=== PATIENT | male | born 1965 | race Caucasian/White ===

== ENCOUNTER → 2023-11-30 | Outpatient (CLI) | payer MEDICARE ==
[~2023-11-30] MED LIST: AMOXICILLIN 50500 MG PO; ZOFRAN ODT4 MG PO
[2023-11-30 08:34] LABS: BASO % 0.3 % (0.0-2.0); EOS # 0.2 K/mm3 (0.0-0.7); EOS % 3.1 % (0.0-4.0); GRAN # 3.8 K/mm3 (1.4-6.5); GRAN % 56.6 % (42.2-75.2); HEMATOCRIT 44.6 % (42.0-52.0); HEMOGLOBIN 15.5 g/dl (13.5-18.0); LYMPH % 29.5 % (20.0-51.0); MEAN CELL VOLUME 95 fl (80.0-100.0); MEAN CORPUSCULAR HEMOGLOBIN 33 pg (27-31); MEAN CORPUSCULAR HGB CONC 35 g/dl (33.0-37.0); MEAN PLATELET VOLUME 11.1 fl (7.4-10.4); MONO # 0.7 K/mm3 (0.1-0.6); MONO % 10.4 % (1.7-9.3); PLATELET COUNT 204 K/mm3 (130-400); RED BLOOD COUNT 4.71 M/mm3 (4.20-5.60); REDCELL DISTRIBUTION WIDTH-CV 12.3 % (11.5-14.5)
[2023-11-30 09:09] LABS: ALBUMIN 3.8 gm/dL (3.4-4.8); BILIRUBIN,TOTAL 0.5 mg/dL (0.2-1.2); CALCIUM 9.2 mg/dL (8.4-10.2); CHOLESTEROL RISK RATIO 4.8; CREATININE, serum 0.98 mg/dL (0.72-1.25); POTASSIUM 4.1 mmol/L (3.5-4.5); TOTAL PROTEIN 6.6 gm/dL (6.2-8.1)
[2023-11-30 09:44] LABS: BILIRUBIN,DIRECT 0.2 mg/dL (0.0-0.5); VALPROIC ACID (DEPAKENE) 36.8 ug/mL (43.5-90.5)
== END ==
LOC: COL.LAB 08:04
PROVIDERS: Nurse Practitioner Psychiatric/Mental Health
DX: F31.2 Bipolar disorder, current episode manic severe with psychotic features (principal); Z79.899 Other long term (current) drug therapy

== ENCOUNTER 2024-04-07 15:27 | Emergency (ER) | payer MEDICARE ==
[~2024-04-07] VITALS: Ht 182.9 cm; Wt 72.7 kg
[2024-04-07] MEDS ORDERED: BACTROBAN 22GM22 GM TP (18:39)
[2024-04-07 18:51] VITALS: BP 194/109; PULSE 94; TEMP 97.5
[2024-04-07] MEDS ORDERED: Lisinopril 10 MG TAB PO ONE (19:00)
== END 2024-04-07 18:58 | disposition home or self-care (01) ==
LOC: COL.ER 15:27
DX: Z71.1 Person with feared health complaint in whom no diagnosis is made (principal)